=== PATIENT | male | born 1980 | race Caucasian/White ===

== ENCOUNTER 2018-02-24 07:06 | Emergency (ER) | payer BC ==
[2018-02-24] MEDS: TETRACAINE 0.5% 4 ML OPH RIGHT EYE (07:28)
[2018-02-24] MEDS: predniSONE 20 MG TAB PO (07:31)
== END 2018-02-24 07:37 | disposition home or self-care (01) ==
LOC: FTE 07:06
DX: H10.11 Acute atopic conjunctivitis, right eye (principal); H01.001 Unspecified blepharitis right upper eyelid; K12.2 Cellulitis and abscess of mouth; I10 Essential (primary) hypertension; E11.9 Type 2 diabetes mellitus without complications
CPT/HCPCS: 99283